=== PATIENT | female | born 1970 | race Caucasian/White ===

== ENCOUNTER 2018-02-08 13:21 | Outpatient (CLI) | payer BC | END 2018-02-08 13:22 | disposition home or self-care (01) | LOC: BICMAMMO 13:21 | PROVIDERS: ATTEND Family Medicine | DX: Z12.31 Encounter for screening mammogram for malignant neoplasm of breast (principal); R92.1 Mammographic calcification found on diagnostic imaging of breast | CPT/HCPCS: 77063; 77067 ==

== ENCOUNTER 2018-08-16 11:07 | Inpatient (IN) | payer BC ==
[2018-08-16] MEDS ORDERED: Adenosine 6 MG/2 ML VIAL ONE (11:31)
[2018-08-16 11:54] LABS: #Basophils 0.2 thou/uL (0.0-0.2); #Eosinphils 0.2 thou/uL (0.0-0.7); #Lymphocytes 3.6 thou/uL (1.20-3.40); #Monocytes 0.9 thou/uL (0.11-0.59); #Neutrophils 6.1 thou/uL (1.40-6.50); %Basophils 1.5 % (0.0-1.0); %Eosinophils 1.7 % (0.0-10.0); %Lymphocytes 33.5 % (21.0-51.0); %Monocytes 7.8 % (0.0-10.0); %Neutrophils 55.6 % (42.0-75.0); Hemoglobin 15.8 g/dL (12.0-16.0); Mean Corpuscular HGB CONC 32.8 g/dL (32.0-36.0); Mean Corpuscular Hemoglobin 29.8 pg (27.0-31.0); Mean Platelet Volume 9.3 fL (7.4-10.4); Platelet Count 237 thou/uL (130-400); RBC Distribution Width 12.7 % (11.5-14.5); Red Blood Cell (RBC) Count 5.29 mill/uL (4.20-5.40); White Blood Cell (WBC) Count 10.9 thou/uL (4.8-10.8)
--- NOTE | 2018-08-16 12:05 | RAD ---
FRONTAL VIEW CHEST: Date: 08/16/18 INDICATION: Emergency exam, tachycardia. FINDINGS: Lungs are clear. Cardiac silhouette is accentuated by portable technique and patient rotation. There is hazy density overlying the inferior chest bilaterally, likely due to overlying soft tissues. IMPRESSION: No focal consolidation. If symptoms persist, recommend well positioned follow-up 2 view chest radiogr aph to further assess. POS: [facility]
[2018-08-16 12:09] LABS: ALT (SGPT) 21 U/L (8-55); AST (SGOT) 18 U/L (5-34); Albumin 3.9 g/dL (3.5-5.0); Alkaline Phosphatase 48 U/L (40-150); Anion Gap 15 mmol/L (10-20); BUN (Urea Nitrogen) 11 mg/dL (7.0-18.7); Bilirubin, Total 0.5 mg/dL (0.2-1.2); Calc. Creatinine Clearance 0 mL/min (70-130); Carbon Dioxide 21 mmol/L (22-29); Chloride 103 mmol/L (98-107); Estimated GFR-MDRD 77; Globulin 3.4 g/dL (2.4-3.5); Glucose 113 mg/dL (70-105); Potassium 3.6 mmol/L (3.5-5.1); Protein, Total 7.3 g/dL (6.0-8.3); Sodium 135 mmol/L (136-145)
[2018-08-16 12:26] LABS: CKMB 1.9 ng/mL (0-6.6)
[2018-08-16 14:45] LABS: Troponin I 0.082 ng/mL (< 0.028)
[2018-08-16] MEDS ORDERED: Aspirin Chewable 81 MG TAB ONE (14:52)
[2018-08-16 17:56] LABS: Troponin I 0.094 ng/mL (< 0.028)
[2018-08-16] MEDS ORDERED: Ondansetron PF 4 MG/2 ML Vial IVP PRN (18:09)
[2018-08-16] MEDS ORDERED: Acetaminophen 325 MG TAB PO PRN (18:09)
[2018-08-16] MEDS ORDERED: Ondansetron ODT 4 MG TAB SL PRN (18:09)
[2018-08-16 20:39] LABS: Troponin I 0.092 ng/mL (< 0.028)
[2018-08-16] MEDS ORDERED: Metoprolol Tartrate 25 MG TAB PO SCH (22:15)
--- NOTE | 2018-08-17 01:42 | HP ---
PRIMARY CARE PHYSICIAN: CODE STATUS: Full code. TIME OF EVALUATION: 9:40 p.m. CHIEF COMPLAINT FOR THIS PATIENT: Palpitations. HISTORY OF PRESENT ILLNESS: This is a 47-year-old female patient with past medical history of hypertension, came to the hospital after having an episode of generalized weakness, back pain, and dizziness associated with rapid heart rate. The rate was seemed to be in the 170s with no clear triggers. No alleviating factors. Symptoms are severe. The patient's heart rate improved after given adenosine, after that the patient has been having some episodes of on and off PSVT. For that reason, she is being admitted to the hospital. REVIEW OF SYSTEMS: CONSTITUTIONAL: No fever or chills. The patient reported generalized weakness. RESPIRATORY: No cough, sputum production, shortness of breath. CARDIOVASCULAR: No chest pain or palpitations present. GASTROINTESTINAL: No nausea, no vomiting, diarrhea, or abdominal pain. 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 No headache or feeling lightheaded. GENITOURINARY: No burning on urination. EXTREMITIES: No leg swelling. All other systems were reviewed and negative except for the findings mentioned above. PAST MEDICAL HISTORY: Positive for hyperlipidemia and hypertension. SURGICAL HISTORY: TMJ, D and C, eustachian tube implant. Surgical history of orthopedic surgery, left ankle pins and rods. PSYCH HISTORY: No previous psych history. SOCIAL HISTORY: No alcohol, no drugs, no smoking history. FAMILY HISTORY: Mother had a history of DVT. No arrhythmias in the family. ALLERGIES: NO KNOWN DRUG ALLERGIES. PHYSICAL EXAMINATION: VITAL SIGNS: Blood pressure 132/100 with heart rate 198, respiratory rate was 18, temperature 98.3. Pain was 0/10. Oxygen saturation 99% on room air. GENERAL APPEARANCE: The patient is alert, oriented, not in acute distress. HEENT: Eyes, normal conjunctivae. Moist oral mucosa. Anicteric. NECK: No JVD. RESPIRATORY: Bilateral air entry. No rales. No wheezes. Symmetric expansion. CARDIOVASCULAR: Normal rate and regular rhythm. No murmurs, no gallops. No edema. During my examination, the patient did have some episodic tachyarrhythmias. ABDOMEN: Soft. Normal bowel sounds. MUSCULOSKELETAL: Baseline range of motion and strength. No tenderness. SKIN: Warm, intact. No pallor. No rash. No redness. Peripheral pulses are present. Capillary refill seems to be intact. NEUROLOGIC: No evidence of any new focal weakness. Cranial nerves seems to be intact. PSYCHIATRIC: The patient is in good mood. No anxiety. Optimal judgment. IMAGING STUDIES: EKG was reviewed. The patient has PSVT at the rate of [address] depressions. The repeat EKG showed sinus tachycardia at a rate of 106. Chest x-ray was reviewed. The patient has no focal consolidation. If symptoms persist, recommend well-positioned followup two-view chest radiograph for further assessment. LABORATORY DATA: Labs were reviewed. The patient has a white count of 10.9, hemoglobin 15.8, MCV 91, platelet count 237. D-dimer 0.42. Sodium 135, potassium 3.6, chloride 103, carbon dioxide 21, anion gap 15, BUN 11, creatinine 0.8, GFR 77, glucose 113, calcium 9.0, total bilirubin 0.5, AST 18, ALT 21. Troponin was borderline, 0.034, 0.082, 0.094. ASSESSMENT AND PLAN: The patient will be placed in the hospital following medical problems; 1. Paroxysmal supraventricular tachycardia. The patient improved initially with adenosine, however, has had some on and off paroxysmal episode of paroxysmal supraventricular tachycardia, that has resolved by itself. We have started the patient on Lopressor 25 mg b.i.d. We will consult Cardiology for recommendations. 2. [id number] myocardial infarction type 2. There is some leakage of troponin likely due to tachyarrhythmia. We will monitor, Cardiology is being consulted for recommendations. 3. Hyponatremia, sodium 135, this is mild, no need for any acute intervention at this point. We will monitor and treat accordingly. 4. Hyperglycemia, glucose 113, this is minimal, likely due to acute physical distress. We will monitor, we will treat accordingly. 5. Uncontrolled blood pressure, systolic blood pressure 150/93, the patient has been started on Lopressor and home medications have been reconciled. 6. Deep venous thrombosis prophylaxis. Job ID: [id number]
[2018-08-17 05:52] LABS: Anion Gap 13 mmol/L (10-20); BUN (Urea Nitrogen) 11 mg/dL (7.0-18.7); Calc. Creatinine Clearance 167 mL/min (70-130); Calcium 8.3 mg/dL (7.8-10.44); Carbon Dioxide 23 mmol/L (22-29); Chloride 106 mmol/L (98-107); Estimated GFR-MDRD 85; Glucose 88 mg/dL (70-105); Potassium 3.6 mmol/L (3.5-5.1); Sodium 138 mmol/L (136-145)
[2018-08-17 06:09] LABS: #Eosinphils 0.3 thou/uL (0.0-0.7); #Lymphocytes 2.9 thou/uL (1.20-3.40); #Monocytes 0.6 thou/uL (0.11-0.59); #Neutrophils 3.6 thou/uL (1.40-6.50); %Basophils 0.6 % (0.0-1.0); %Eosinophils 4.2 % (0.0-10.0); %Lymphocytes 38.9 % (21.0-51.0); %Monocytes 7.7 % (0.0-10.0); %Neutrophils 48.6 % (42.0-75.0); Hemoglobin 12.7 g/dL (12.0-16.0); Mean Corpuscular Hemoglobin 31.1 pg (27.0-31.0); Mean Platelet Volume 9.1 fL (7.4-10.4); Platelet Count 167 thou/uL (130-400); RBC Distribution Width 12.3 % (11.5-14.5); Red Blood Cell (RBC) Count 4.08 mill/uL (4.20-5.40); White Blood Cell (WBC) Count 7.3 thou/uL (4.8-10.8)
[2018-08-17] MEDS ORDERED: Magnesium 2 GM/50 ML 2 GM in Premix Bag 1 BAG IVPB SCH (08:00)
[2018-08-17] MEDS: Hydrochlorothiazide 25 MG TAB PO SCH (09:53)
[2018-08-17] MEDS: Metoprolol Tartrate 25 MG TAB PO SCH ×2 (09:53→20:29)
[2018-08-17] MEDS: Enoxaparin Sodium 40 MG/0.4 ML SYRINGE SC SCH (09:54)
--- NOTE | 2018-08-17 16:48 | CON ---
DATE OF CONSULTATION: 08/17/2018 REFERRING PHYSICIAN: Vineet Gipson MD. REASON FOR CONSULTATION: SVT. HISTORY OF PRESENT ILLNESS: Ms. Lam is a pleasant 47-year-old woman with past medical history of hypertension and hypercholesterolemia. She presented to the emergency room after having an episode of generalized weakness with associated back pain and dizziness. She was found to be tachycardic with heart rates in the 170s. 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 She does endorse that she has had similar episodes in the past self-limiting and terminating on their own for approximately the past 3 years. Sometimes they would manager discovery together for few weeks and then not occur for months. When her episodes recur, she would rest, lie down and take deep breath and eventually the episodes would subside. She has never been on any medication to control these episodes and this is the 1st time she is being diagnosed with tachycardia and SVT. REVIEW OF SYSTEMS: A 12-point review of systems was conducted and is negative except that is listed above in the HPI. PAST MEDICAL HISTORY: 1. Hyperlipidemia. 2. Hypertension. 3. Obesity. PAST SURGICAL HISTORY: TMJ, D and C, eustachian tube implant, left ankle pins and rods. SOCIAL HISTORY: Negative for drugs, alcohol, or tobacco use. FAMILY HISTORY: Mother had a DVT. Negative for sudden cardiac . Denies any family history of arrhythmias or early-onset coronary artery disease. ALLERGIES: NO KNOWN DRUG ALLERGIES. HOME MEDICATIONS: Include: 1. Pravastatin 20 mg p.o. daily. 2. Hydrochlorothiazide 12.5 mg p.o. daily. PHYSICAL EXAMINATION: VITAL SIGNS: Temperature 98.9, pulse 74, blood pressure 127/58, respirations 16, oxygen saturation is 94% on room air. GENERAL: Ms. Lam is well groomed and well nourished. She is alert and oriented. Her speech is clear. Her affect is appropriate. NECK: Supple without jugular venous distention. LUNGS: Clear to auscultation bilaterally. HEART: Rate is irregularly irregular. There is a crisp S1 and S2. There is no significant murmur, rub, or gallop. ABDOMEN: Obese, soft, and nontender without palpable masses. EXTREMITIES: Warm and dry to touch without clubbing, cyanosis, or edema. NEUROLOGIC: Grossly intact and nonfocal. Cranial nerves 2-12, gait was not assessed. DATABASE: Hematology was reviewed and is unremarkable. Chemistry was reviewed, potassium 3.6, creatinine 0.73, magnesium 1.7. Serial troponins were conducted and peaked at 0.094, attributed to demand ischemia. ALT and AST were within normal limits. Telemetry and EKGs, all were personally reviewed and now largely reflects sinus rhythm with paroxysmal SVT episodes, presenting rhythm demonstrates SVT and very likely AVNRT with discernible P waves. IMPRESSION: 1. 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 2. Obesity. 3. Mildly elevated troponins, attributed to demand ischemia. 4. Hypertension. RECOMMENDATIONS: I agree with AV kale blocking therapy to control her paroxysmal SVT episodes. Long-term we discussed rate control and medical management versus SVT ablation and EP study. She is in favor of EP study with possible ablation, which will be arranged for Monday. She will likely need to remain for the weekend for medical management in the interim if she continues to have paroxysmal episodes. Also check a TSH to rule out any thyroid issues that may be provoking arrhythmia episodes. I agree with the plan to check an echocardiogram later today. Thank you for allowing us to participate in the care of this patient. Job ID: [id number]
--- NOTE | 2018-08-17 17:03 | PDOC.PN ---
- Subjective Encounter Start Date: 08/17/18 Encounter Start Time: 13:00 The patient is a 47 yo female who presented to the ER with complaints of palpitations, generalized weakness, and arm/ back pain. On arrival, HR was in the 170s, and she was given adenosine with conversion to SR. She has been in SR since that time. She continues to complain of some left arm pain, but she denies any associated symptoms, including SOB, palpitations, dizziness, or CP. No N/V. - Objective Resuscitation Status - Order Detail: 08/16/18 22:38 Resuscitation Status Routine Resuscitation Status: FULL: Full Resuscitation Vital Signs & Weight: Vital Signs (12 hours) Temp Pulse Resp BP BP Pulse Ox 08/17/18 12:00 98.9 F 74 16 127/58 L 94 L 08/17/18 10:32 79 142/79 H 95 08/17/18 08:00 97.8 F 87 16 143/69 H 96 08/17/18 05:08 98 F 73 14 139/63 95 Weight Weight 248 lb 1.6 oz I&O: 08/16/18 08/17/18 08/18/18 06:59 06:59 06:59 Intake Total 500 Balance 500 Result Diagrams: 08/17/18 04:22 08/17/18 04:22 Phys Exam - Physical Examination HEENT: moist MMs Neck: no nodes, no JVD, supple Respiratory: no wheezing, no rales, no rhonchi, clear to auscultation bilateral Cardiovascular: RRR, no significant murmur Gastrointestinal: soft, non-tender, positive bowel sounds Musculoskeletal: no edema, pulses present Neurological: non-focal Lymphatic: no nodes Psychiatric: normal affect, A&O x 3 Dx/Plan (1) AVNRT (AV kale re-entry tachycardia) Code(s): I47.1 - SUPRAVENTRICULAR TACHYCARDIA Status: Acute (2) Hypertension Code(s): I10 - ESSENTIAL (PRIMARY) HYPERTENSION Status: Chronic Qualifiers: Hypertension type: essential hypertension Qualified Code(s): I10 - Essential (primary) hypertension (3) Left arm pain Code(s): M79.602 - PAIN IN LEFT ARM Status: Acute Comment: suspect musculoskeletal - Plan * . The patient has been seen in consultation by both Dr. Gipson and Dr. Newton. The plan at this time is for EP ablation to be performed on Monday; due to her recurrent symptoms, Dr. Newton recommends continued close telemetry monitoring until her ablation on Monday. Continue B Crystal. I have given her instructions regarding vagal maneuvers and face/ice water submersion as conservative measures to abort AVNRT as well. Review of Systems - Review of Systems Constitutional: malaise. negative: fever, chills, sweats, weakness, other Cardiovascular: chest pain, palpitations, edema. negative: orthopnea, paroxysmal nocturnal dyspnea, light headedness, other Gastrointestinal: negative: Nausea, Vomiting Genitourinary: negative: Dysuria - Medications/Allergies Allergies/Adverse Reactions: Allergies Allergy/AdvReac Type Severity Reaction Status Date / Time No Known Allergies Allergy Verified 01/28/13 19:48 Medications: Current Medications Enoxaparin Sodium (Lovenox) 40 mg SC 0900 [facility] Last Admin: 08/17/18 09:54 Dose: 40 mg Hydrochlorothiazide (Hydrochlorothiazide) 12.5 mg PO DAILY [facility] Last Admin: 08/17/18 09:53 Dose: 12.5 mg Metoprolol Tartrate (Lopressor) 25 mg PO BID [facility] Last Admin: 08/17/18 09:53 Dose: 25 mg Pravastatin Sodium (Pravachol) 20 mg PO HS [facility]
[2018-08-17] MEDS ORDERED: Ondansetron PF 4 MG/2 ML Vial IVP PRN (17:27)
[2018-08-17] MEDS: Acetaminophen 500 MG TAB PO PRN (18:18)
--- NOTE | 2018-08-17 19:13 | CON ---
DATE OF CONSULTATION: HISTORY OF PRESENT ILLNESS: Sally Lam is a 47-year-old white female, who has been evaluated in [address] Aranda for vein disease and was seen by Dr. Rajan in 2017 for hypertension. Both of these were office visits. Approximately 3 years ago , she states she started having episodes of extreme weakness, lightheadedness, and dizziness. When these first started, she would have 3 or 4 episodes per day and they tended to last 3 minutes. With these episodes, she denies ever having any palpitations. These episodes seem to decrease in frequency. Then yesterday, she had another such episode of weakness, dizziness, lightheadedness, but this time felt her heart beating very rapidly. She came to the emergency room, was given adenosine and converted to normal sinus rhythm. Since being in the hospital, she has had one short episodes of the SVT. PAST MEDICAL HISTORY: Remarkable for hypertension and hypercholesterolemia. PAST SURGICAL HISTORY: , D and C, TMJ surgery x2, eustachian tube implant, and left ankle orthopedic surgery. MEDICATIONS: 1. Hydrochlorothiazide 12.5 daily. 2. Pravastatin 20 at bedtime. ALLERGIES: NONE. SOCIAL HISTORY: She does not smoke or drink. FAMILY HISTORY: Negative for coronary artery disease. REVIEW OF SYSTEMS: A 10-point review of systems is otherwise unremarkable. PHYSICAL EXAMINATION: VITAL SIGNS: Blood pressure 127/58 and pulse is 74. HEENT: PERRL. NECK: Supple. CHEST: Clear. CARDIAC: S1 and S2 normal without any S3, S4, or murmurs. ABDOMEN: Obese. Normal bowel sounds. No tenderness. EXTREMITIES: Revealed trace pretibial edema. NEUROLOGIC: Grossly intact. SKIN: Warm and dry. LABORATORY DATA: EKG reveals supraventricular tachycardia with rate of 195 per minute with nonspecific ST and T-wave changes. Echo is pending. CBC is unremarkable. D-dimer 0.42. Sodium 138, potassium 3.6, chloride 106, carbon dioxide 23, BUN 11, creatinine 0.73. Troponin I 0.094. IMPRESSION: 1. Supraventricular tachycardia, terminated with intravenous adenosine. 2. Episodes of lightheadedness and dizziness over the last 3 years, which may be related to supraventricular tachycardia, however, she did not have any palpitations with those episodes. 3. Hypertension. 4. Hypercholesterolemia. 5. Obesity. PLAN: Echocardiogram will be performed to assess any structural cardiac disease. Electrophysiology will be consulted for possible catheter ablation. Fasting lipid profile will be performed. Job ID: [id number] MTDD
[2018-08-17] MEDS ORDERED: Pravastatin Sodium 20 MG TAB PO SCH (21:00)
[2018-08-18] MEDS: Enoxaparin Sodium 40 MG/0.4 ML SYRINGE SC SCH (08:54)
[2018-08-18] MEDS: Metoprolol Tartrate 25 MG TAB PO SCH ×2 (08:55→21:32)
[2018-08-18] MEDS: Hydrochlorothiazide 25 MG TAB PO SCH (08:55)
[2018-08-18] MEDS: Acetaminophen 500 MG TAB PO PRN (14:54)
--- NOTE | 2018-08-18 18:40 | PDOC.PN ---
- Subjective Encounter Start Date: 08/18/18 Encounter Start Time: 10:30 Patient seen and examined for CP/SVT. Intermittent left arm pain. No N/V diaphoresis. No new complaints. No overnight events - Objective Resuscitation Status - Order Detail: 08/16/18 22:38 Resuscitation Status Routine Resuscitation Status: FULL: Full Resuscitation MAR Reviewed: Yes Vital Signs & Weight: Vital Signs (12 hours) Temp Pulse Resp BP Pulse Ox 08/18/18 15:05 98.3 F 81 16 121/58 L 96 08/18/18 11:25 98.1 F 66 16 120/65 94 L 08/18/18 07:35 98 F 80 16 137/68 94 L Weight Weight 240 lb 9.6 oz I&O: 08/17/18 08/18/18 08/19/18 06:59 06:59 06:59 Intake Total 605 535 7880 Output Total 350 900 Balance 500 -60 200 Result Diagrams: 08/17/18 04:22 08/17/18 04:22 EKG Reviewed by me: Yes (Tele SR) Phys Exam - Physical Examination Constitutional: NAD Respiratory: no wheezing, no rhonchi Cardiovascular: RRR, no rub Gastrointestinal: soft, non-tender, positive bowel sounds Musculoskeletal: no edema Neurological: moves all 4 limbs Psychiatric: A&O x 3 Dx/Plan - Plan DVT proph w/SCDs 1. PSVT s/p Adenosine 2. CP 3. Obesity BMI 38.8 4. Elevated troponin due to demand ischemia 5. HTN 6. HLD PLAN: Stress test in AM per Cardiology Cont Low dose Metoprolol DC SQ Lovenox - Patient ambulating Cont current meds as below Review of Systems - Review of Systems Cardiovascular: negative: chest pain, palpitations, orthopnea, paroxysmal nocturnal dyspnea, edema, light headedness, other Gastrointestinal: negative: Nausea, Vomiting, Abdominal Pain, Diarrhea, Constipation, Melena, Hematochezia, Other - Medications/Allergies Allergies/Adverse Reactions: Allergies Allergy/AdvReac Type Severity Reaction Status Date / Time No Known Allergies Allergy Verified 01/28/13 19:48 Medications: Current Medications Acetaminophen (Tylenol) 1,000 mg PO Q6H PRN PRN Reason: Mild Pain (1-3) Last Admin: 08/18/18 14:54 Dose: 1,000 mg Atorvastatin Calcium (Lipitor) 10 mg PO HS [facility] Enoxaparin Sodium (Lovenox) 40 mg SC 0900 [facility] Last Admin: 08/18/18 08:54 Dose: 40 mg Hydrochlorothiazide (Hydrochlorothiazide) 12.5 mg PO DAILY [facility] Last Admin: 08/18/18 08:55 Dose: 12.5 mg Metoprolol Tartrate (Lopressor) 25 mg PO BID [facility] Last Admin: 08/18/18 08:55 Dose: 25 mg Ondansetron HCl (Zofran) 4 mg IVP Q6H PRN PRN Reason: Nausea/Vomiting
[2018-08-18] MEDS: Atorvastatin Calcium 10 MG TAB PO SCH (21:32)
[2018-08-19] MEDS: Hydrochlorothiazide 25 MG TAB PO SCH (13:18)
[2018-08-19] MEDS: Metoprolol Tartrate 25 MG TAB PO SCH ×2 (13:19→21:16)
--- NOTE | 2018-08-19 15:53 | NM ---
RADIONUCLIDE STRESS ONLY MYOCARDIAL PERFUSION SCAN WITH CT ATTENUATION CORRECTION AND SPECT IMAGING W ITH LEFT VENTRICULAR WALL MOTION EVALUATION AND EJECTION FRACTION: HISTORY: Chest pain. FINDINGS: Adenosine protocol. There is homogeneous uptake of radiotracer throughout the left ventricular myocardium. No focal perfu barbara defect. QGS analysis of gated SPECT images shows no focal wall motion abnormalities. Ejection fr action calculated at 60%. IMPRESSION: 1. Normal myocardial perfusion scan. 2. Normal LVEF. POS: [facility]
--- NOTE | 2018-08-19 19:31 | PDOC.PN ---
- Subjective Encounter Start Date: 08/19/18 Encounter Start Time: 14:30 Patient seen and examined for SVT. No CP. No new complaints. No overnight events - Objective Resuscitation Status - Order Detail: 08/16/18 22:38 Resuscitation Status Routine Resuscitation Status: FULL: Full Resuscitation MAR Reviewed: Yes Vital Signs & Weight: Vital Signs (12 hours) Temp Pulse Resp BP BP Pulse Ox 08/19/18 19:20 97.8 F 89 19 142/66 H 95 08/19/18 16:00 97.9 F 80 16 128/61 95 08/19/18 12:00 92 16 139/87 96 08/19/18 08:00 93 L 08/19/18 07:30 98.3 F 69 16 130/67 93 L Weight Weight 240 lb 6.4 oz I&O: 08/18/18 08/19/18 08/20/18 06:59 06:59 06:59 Intake Total 290 1580 960 Output Total 350 1200 Balance -60 380 960 Result Diagrams: 08/17/18 04:22 08/17/18 04:22 EKG Reviewed by me: Yes (Tele SR) Phys Exam - Physical Examination Constitutional: NAD Respiratory: no wheezing, no rhonchi Cardiovascular: RRR, no rub Gastrointestinal: soft, positive bowel sounds Musculoskeletal: no edema Dx/Plan - Plan DVT proph w/SCDs 1. PSVT s/p Adenosine 2. CP 3. Obesity BMI 38.8 4. Elevated troponin due to demand ischemia 5. HTN 6. HLD PLAN: Stress test - no reversible ischemia Cont Low dose Metoprolol Cont current meds as below AM labs Ablation in AM Review of Systems - Review of Systems Cardiovascular: negative: chest pain, palpitations, orthopnea, paroxysmal nocturnal dyspnea, edema, light headedness, other Gastrointestinal: negative: Nausea, Vomiting, Abdominal Pain, Diarrhea, Constipation, Melena, Hematochezia, Other - Medications/Allergies Allergies/Adverse Reactions: Allergies Allergy/AdvReac Type Severity Reaction Status Date / Time No Known Allergies Allergy Verified 01/28/13 19:48 Medications: Current Medications Acetaminophen (Tylenol) 1,000 mg PO Q6H PRN PRN Reason: Mild Pain (1-3) Last Admin: 08/18/18 14:54 Dose: 1,000 mg Atorvastatin Calcium (Lipitor) 10 mg PO HS [facility] Last Admin: 08/18/18 21:32 Dose: 10 mg Hydrochlorothiazide (Hydrochlorothiazide) 12.5 mg PO DAILY [facility] Last Admin: 08/19/18 13:18 Dose: 12.5 mg Metoprolol Tartrate (Lopressor) 25 mg PO BID [facility] Last Admin: 08/19/18 13:19 Dose: 25 mg Ondansetron HCl (Zofran) 4 mg IVP Q6H PRN PRN Reason: Nausea/Vomiting
[2018-08-19] MEDS: Atorvastatin Calcium 10 MG TAB PO SCH (21:16)
[2018-08-20 05:39] LABS: #Basophils 0.1 thou/uL (0.0-0.2); #Eosinphils 0.4 thou/uL (0.0-0.7); #Lymphocytes 2.9 thou/uL (1.20-3.40); #Monocytes 0.7 thou/uL (0.11-0.59); #Neutrophils 4.1 thou/uL (1.40-6.50); %Eosinophils 4.6 % (0.0-10.0); %Lymphocytes 35.8 % (21.0-51.0); %Monocytes 8.2 % (0.0-10.0); %Neutrophils 50.5 % (42.0-75.0); Mean Corpuscular HGB CONC 32.9 g/dL (32.0-36.0); Mean Corpuscular Hemoglobin 30.7 pg (27.0-31.0); Mean Corpuscular Volume 93.2 fL (78.0-98.0); Platelet Count 176 thou/uL (130-400); RBC Distribution Width 12.4 % (11.5-14.5); Red Blood Cell (RBC) Count 4.55 mill/uL (4.20-5.40); White Blood Cell (WBC) Count 8.1 thou/uL (4.8-10.8)
[2018-08-20 06:03] LABS: Anion Gap 11 mmol/L (10-20); BUN (Urea Nitrogen) 10 mg/dL (7.0-18.7); Calc. Creatinine Clearance 148 mL/min (70-130); Calcium 9.2 mg/dL (7.8-10.44); Carbon Dioxide 27 mmol/L (22-29); Chloride 103 mmol/L (98-107); Estimated GFR-MDRD 75; Glucose 91 mg/dL (70-105); Magnesium 1.9 mg/dL (1.6-2.6); Potassium 3.9 mmol/L (3.5-5.1); Sodium 137 mmol/L (136-145)
[2018-08-20] MEDS: Hydrochlorothiazide 25 MG TAB PO SCH (10:04)
[2018-08-20] MEDS: Metoprolol Tartrate 25 MG TAB PO SCH ×2 (10:04→22:00)
[2018-08-20] MEDS ORDERED: Heparin 0 ML ONE (12:44)
--- NOTE | 2018-08-20 13:31 | STRESS ---
Acquisition Time: 2018-08-19 09:47:23 Total Exercise Time: 00:04:00 Test Indications: CHEST PAIN Medications: Protocol: ADENOSINE Max HR: 123 BPM 71% of Pred: 172 BPM Max BP: 138/072 mmHG Max Work Load: 1.0 METS RESTING ECG: NORMAL SINUS RHYTHM AT 86 BPM SYMPTOMS: THROAT TIGHTNESS NORMAL BLOOD PRESSURE RESPONSE ECTOPY: NONE ECG RESPONSE: NO SIGNIFICANT CHANGES INTERPRETATION: AWAIT NUCLEAR IMAGES FOR DEFINITIVE DIAGNOSIS Confirmed by COURTNEY NICHOLAS ([id number]), pictures editor RADHA MCDUFFIE ([id number]) on 08/20/2018 1:30:26 PM Referred By: David NICHOLAS Confirmed By:COURTNEY NICHOLAS
[2018-08-20] MEDS ORDERED: Midazolam HCl 2 mg/2 ml Vial ONE (13:51)
[2018-08-20] MEDS ORDERED: Propofol 500 MG/50 ML VIAL ONE (13:51)
[2018-08-20] MEDS ORDERED: Fentanyl 100 MCG/2 ML VIAL ONE (13:51)
[2018-08-20] MEDS ORDERED: Heparin 10,000 UNITS/1 ML VIAL ONE (14:02)
[2018-08-20] MEDS ORDERED: Ondansetron PF 4 MG/2 ML Vial ONE ×2 (14:28→15:25)
[2018-08-20] MEDS ORDERED: Isoproterenol 0.2 MG/1 ML AMP ONE ×2 (14:39→15:02)
[2018-08-20] MEDS ORDERED: PHENYLEPHRINE-NS 100 MCG/ML 10 ML SYRINGE ONE (15:25)
[2018-08-20] MEDS ORDERED: PROPOFOL 200 MG/20 ML VIAL ONE (15:25)
--- NOTE | 2018-08-20 17:06 | PDOC.PN ---
- Subjective Encounter Start Date: 08/20/18 Encounter Start Time: 09:30 Patient seen and examined for SVT. No CP. No new complaints. No overnight events - Objective Resuscitation Status - Order Detail: 08/16/18 22:38 Resuscitation Status Routine Resuscitation Status: FULL: Full Resuscitation MAR Reviewed: Yes Vital Signs & Weight: Vital Signs (12 hours) Temp Pulse Resp BP Pulse Ox 08/20/18 12:10 97.6 F 103 H 20 135/78 95 08/20/18 07:52 97.9 F 67 20 133/62 94 L Weight Weight 242 lb 14.4 oz I&O: 08/19/18 08/20/18 08/21/18 06:59 06:59 06:59 Intake Total 1580 2240 Output Total 1200 1300 Balance 380 940 Result Diagrams: 08/20/18 04:27 08/20/18 04:27 EKG Reviewed by me: Yes (Tele SR) Phys Exam - Physical Examination Constitutional: NAD Respiratory: no wheezing, no rhonchi Cardiovascular: RRR, no rub Gastrointestinal: soft, non-tender, positive bowel sounds Musculoskeletal: no edema Neurological: moves all 4 limbs Dx/Plan - Plan DVT proph w/SCDs 1. PSVT s/p Adenosine 2. CP - Stress test negative 3. Obesity BMI 38.8 4. Elevated troponin due to demand ischemia 5. HTN 6. HLD PLAN: Cont Metoprolol Ablation today Review of Systems - Review of Systems Cardiovascular: negative: chest pain, palpitations, orthopnea, paroxysmal nocturnal dyspnea, edema, light headedness, other Gastrointestinal: negative: Nausea, Vomiting, Abdominal Pain, Diarrhea, Constipation, Melena, Hematochezia, Other - Medications/Allergies Allergies/Adverse Reactions: Allergies Allergy/AdvReac Type Severity Reaction Status Date / Time No Known Allergies Allergy Verified 01/28/13 19:48 Medications: Current Medications Acetaminophen (Tylenol) 1,000 mg PO Q6H PRN PRN Reason: Mild Pain (1-3) Last Admin: 08/18/18 14:54 Dose: 1,000 mg Atorvastatin Calcium (Lipitor) 10 mg PO HS [facility] Last Admin: 08/19/18 21:16 Dose: 10 mg Hydrochlorothiazide (Hydrochlorothiazide) 12.5 mg PO DAILY [facility] Last Admin: 08/20/18 10:04 Dose: Not Given Metoprolol Tartrate (Lopressor) 25 mg PO BID [facility] Last Admin: 08/20/18 10:04 Dose: Not Given Ondansetron HCl (Zofran) 4 mg IVP Q6H PRN PRN Reason: Nausea/Vomiting
[2018-08-20] MEDS: Acetaminophen 500 MG TAB PO PRN (19:21)
--- NOTE | 2018-08-20 21:14 | OP ---
DATE OF PROCEDURE: 08/20/2018 PROCEDURE PERFORMED: Electrophysiology study and radiofrequency ablation. Referring physicians, Dr. Agarwal and Dr. Tatum. REASON FOR PROCEDURE: Ms. Lam is a 47-year-old woman with prior history of elevated BMI, hypertension, and hypercholesteremia, who presented with sustained narrow complex SVT requiring adenosine termination. She is here for EPS and ablation. DESCRIPTION OF PROCEDURE: The patient received propofol by Anesthesia specialist for deep sedation. The left and right femoral veins were prepped, draped, and anesthetized using subcutaneous lidocaine. With ultrasound guidance, the left and right femoral veins were accessed using a multipurpose needle. In the left side , 6 and 8-Trinidadian short sheaths were introduced through which a octapolar and a decapolar catheter was advanced to the right ventricle, His bundle, right atrium, and coronary sinus positions. Pacing, mapping, and recording were performed at each location. The right femoral vein was accessed also and 8-Trinidadian short sheath was introduced. BASELINE FINDINGS: Baseline rhythm is sinus rhythm at cycle length of 748 milliseconds, NJ 100 milliseconds, QRS 63 milliseconds, QT 344 milliseconds, AH 54 milliseconds, and HV 44 milliseconds. The AV Wenckebach cycle length was 300 milliseconds. Retrograde Wenckebach cycle length was 360 milliseconds. The AV kale ERP was 600/240 milliseconds. Concentric retrograde VA conduction was seen and dual AV kale physiology was observed with echo beats. The burst atrial pacing induced short nonsustained AV kale reentry tachycardia with very short VA timing. This corresponded to the presenting rhythm in the ER. At this point, a 4 mm standard deflectable ablation catheter was advanced to the right atrium. Right atrial map was performed delineating the His bundle and slow pathway area as well as coronary sinus and the IVC and isthmus area was mapped. Radiofrequency ablation was performed at the slow pathway area with a total of 9 ablation lesions placed for total duration of 1 minute and 46 seconds. Junctional rhythm was noted throughout the ablation. No second AV block was documented. At this point, re-induction of the atrial arrhythmias were attempted. AV Wenckebach cycle was increased from baseline at 300 to 380 milliseconds. The atrial extrastimuli testing did demonstrate no evidence of accessory pathway. Isuprel was started at this point and burst atrial pacing was performed, but no further atrial arrhythmias were observed. Burst atrial pacing of 200 milliseconds was performed and on Isuprel, able to induce a nonsustained and self- terminating the atrial flutter though which appeared to be typical for isthmus dependent flutter in activation sequence. Burst pacing around the AV Wenckebach, though did not re-induce tachyarrhythmias. No further AV kale reentry tachycardia ACT was seen. 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 The patient tolerated the procedure well. No complication noted. HV interval did not change. CONCLUSION: Inducible typical AV kale re-entry tachycardia. Evidence of slow pathway at the beginning of the case eliminated by slow pathway ablation and no induction based AVNRT is seen. PLAN: Routine postop care and monitoring. Job ID: [id number] MTDD
[2018-08-20] MEDS ORDERED: diphenhydrAMINE 25 MG CAP PO PRN (21:38)
[2018-08-20] MEDS: Atorvastatin Calcium 10 MG TAB PO SCH (22:00)
[2018-08-21 08:05] VITALS: BP 128/67; TEMP 98.1
[2018-08-21] MEDS: Hydrochlorothiazide 25 MG TAB PO SCH (09:15)
[2018-08-21] MEDS: Metoprolol Tartrate 25 MG TAB PO SCH (09:16)
--- NOTE | 2018-08-21 09:25 | DIS ---
DATE OF ADMISSION: 08/16/2018 DATE OF DISCHARGE: 08/21/2018 DISCHARGE DISPOSITION: Home. FOLLOWUP: 1. Follow up with primary care physician, Dr. Walters, in 1 week. 2. Follow up with Electrophysiology, Dr. Newton, in 4 to 6 weeks. 3. Follow up with Dr. Gipson as needed. The patient was seen and examined on the day of discharge. Denies any new complaints. No chest pain, shortness of breath, or palpitations. DISCHARGE MEDICATIONS: 1. Metoprolol 12.5 mg b.i.d. (new medication). The patient was advised to taper metoprolol if her blood pressure runs on the lower side. 2. Hydrochlorothiazide 12.5 mg daily and pravastatin 20 mg daily will be resumed. INPATIENT MENTAL HEALTH AIDE: Cardiology, Dr. Vineet Giposn; Electrophysiology, Dr. Newton. BRIEF HOSPITAL COURSE: The patient is a 47-year-old female with hypertension and hyperlipidemia, who presented to the hospital with chest discomfort and palpitations. Please refer to the history and physical for further details. The patient was admitted to the hospital with a diagnosis of supraventricular tachycardia. She converted after adenosine in the emergency room. She was evaluated by Electrophysiology, Dr. Newton. She underwent radiofrequency ablation by Dr. Newton yesterday. Due to chest discomfort during this hospital stay, she underwent a Cardiolite stress test that was negative for reversible ischemia. Ejection fraction was 60%. An echocardiogram was also obtained that showed ejection fraction 50% to 55% with diastolic dysfunction, mild mitral regurgitation, and mild tricuspid regurgitation. She has been cleared by consultants for discharge. FINAL DIAGNOSES: 1. Palpitations secondary to supraventricular tachycardia, converted after IV adenosine. 2. Chest discomfort with a negative Cardiolite stress test. 3. Obesity with a body mass index of 38.8. 4. Elevated troponin secondary to demand ischemia. 5. Hypertension. 6. Hyperlipidemia. 7. Chronic kidney disease, stage 2. SIGNIFICANT LABORATORY DATA: 1. LDL 106, cholesterol 167, triglyceride 97, and HDL 42. 2. TSH 2.8. Troponin 0.092. 3. D-dimer was 0.42. Plan was discussed with the patient in detail. She stated understanding. Job ID: [id number]
--- NOTE | 2018-08-21 16:19 | EKG ---
Test Reason : Blood Pressure : / mmHG Vent. Rate : 065 BPM Atrial Rate : 065 BPM P-R Int : 150 ms QRS Dur : 082 ms QT Int : 392 ms P-R-T Axes : 034 038 034 degrees QTc Int : 407 ms Sinus rhythm with marked sinus arrhythmia Otherwise normal ECG Confirmed by DAKOTA LANCE ([id number]) on 08/21/2018 4:19:40 PM Referred By: BRITTNI Confirmed By:DAKOTA LANCE
--- NOTE | 2018-08-21 16:23 | EKG ---
Test Reason : Blood Pressure : / mmHG Vent. Rate : 072 BPM Atrial Rate : 072 BPM P-R Int : 146 ms QRS Dur : 082 ms QT Int : 420 ms P-R-T Axes : 050 055 055 degrees QTc Int : 459 ms Normal sinus rhythm Normal ECG Confirmed by DAKOTA LANCE ([id number]) on 08/21/2018 4:22:49 PM Referred By: [facility] Confirmed By:DAKOTA LANCE
== END 2018-08-21 11:17 | disposition home or self-care (01) | DRG 274 ==
LOC: SCSER 11:07 → 2SW 15:40 → OBSVTOIN 15:40
PROVIDERS: ADMIT Internal Medicine; ATTEND Internal Medicine
PROC: 02583ZZ Destruction of Conduction Mechanism, Percutaneous Approach (ICD-10-PCS; principal; 2018-08-20)
PROC: 4A023FZ Measurement of Cardiac Rhythm, Percutaneous Approach (ICD-10-PCS; 2018-08-20)
PROC: 4A0234Z Measurement of Cardiac Electrical Activity, Percutaneous Approach (ICD-10-PCS; 2018-08-20)
PROC: 02K83ZZ Map Conduction Mechanism, Percutaneous Approach (ICD-10-PCS; 2018-08-20)
DX: I47.1 Supraventricular tachycardia (principal); I24.8 Other forms of acute ischemic heart disease; E87.1 Hypo-osmolality and hyponatremia; I12.9 Hypertensive chronic kidney disease with stage 1 through stage 4 chronic kidney disease, or unspecified chronic kidney disease; N18.2 Chronic kidney disease, stage 2 (mild); E78.5 Hyperlipidemia, unspecified; R73.9 Hyperglycemia, unspecified; I34.0 Nonrheumatic mitral (valve) insufficiency; I07.1 Rheumatic tricuspid insufficiency; M79.602 Pain in left arm; E66.9 Obesity, unspecified; Z68.38 Body mass index [BMI] 38.0-38.9, adult; Z79.899 Other long term (current) drug therapy
CPT/HCPCS: 36415; 71045; 76942; 78452; 80048; 80053; 80061; 82553; 83735; 84443; 84484; 85025; 85379; 93005; 93010; 93017; 93306; 93613; 93623; 93653; 96361; 96374; A9500; C1730; C1769; J0153; J1644; J1650; J2250; J2405; J2704; J3010; J3475; Q0163

== ENCOUNTER 2019-02-14 13:44 | Outpatient (CLI) | payer BC ==
--- NOTE | 2019-02-14 14:06 | MMO ---
Bilateral MAMMO Bilat Screen [facility]. CLINICAL HISTORY: Patient is 48 years old and is seen for screening. The patient has no family history of breast cancer. The patient has no personal history of cancer. The patient has a history of right Ultrasound Guided Core Biopsy in Oct, 2010 - benign. VIEWS: The views performed were: bilateral craniocaudal with tomosynthesis and bilateral mediolateral oblique with tomosynthesis. FILMS COMPARED: The present examination has been compared to prior imaging studies performed at [facility] on 08/31/2012, 05/21/2015, 07/06/2016 and 02/08/2018. MAMMOGRAM FINDINGS: The breasts are heterogeneously dense, which could obscure a lesion on mammography. There are no suspicious masses, suspicious calcifications, or new areas of architectural distortion. IMPRESSION: THERE IS NO MAMMOGRAPHIC EVIDENCE OF MALIGNANCY. A ROUTINE FOLLOW-UP MAMMOGRAM IN 1 YEAR IS RECOMMENDED. THE RESULTS OF THIS EXAM WERE SENT TO THE PATIENT. ACR BI-RADS Category 1 - Negative MAMMOGRAPHY NOTE: 1. A negative mammogram report should not delay a biopsy if a dominant of clinically suspicious mass is present. 2. Approximately 10% to 15% of breast cancers are not detected by mammography. 3. Adenosis and dense breasts may obscure an underlying neoplasm. Reported by: GAMAL SMITH MD Electonically Signed: [id number]
== END 2019-02-14 13:45 | disposition home or self-care (01) ==
LOC: BICMAMMO 13:44
PROVIDERS: ATTEND Family Medicine
DX: Z12.31 Encounter for screening mammogram for malignant neoplasm of breast (principal)
CPT/HCPCS: 77063; 77067